=== PATIENT | female | born 1985 | race Hispanic/Latino ===

== ENCOUNTER 2020-08-07 22:00 | Emergency (ER) | payer OTHER | END 2020-08-07 23:51 | disposition home or self-care (01) | LOC: ER 22:15 | DX: R07.81 Pleurodynia (principal); R06.00 Dyspnea, unspecified; D64.9 Anemia, unspecified; Z82.49 Family history of ischemic heart disease and other diseases of the circulatory system; Z83.3 Family history of diabetes mellitus | CPT/HCPCS: 71045; 93005; 99284 ==

== ENCOUNTER 2020-09-17 10:40 | Emergency (ER) | payer OTHER ==
[2020-09-17] MEDS ORDERED: CASIRIVIMAB/IMDEVIMAB 600 MG INJ IV ONE (11:00)
[2020-09-17] MEDS ORDERED: ACETAMINOPHEN 325 MG TAB PO ONE (11:30)
[2020-09-17] MEDS ORDERED: CASIRIVIMAB/IMDEVIMAB 600 MG in SODIUM CHLORIDE 0.9% 100 ML IV ONE (11:30)
== END 2020-09-17 12:23 | disposition home or self-care (01) ==
LOC: ER 10:59
DX: R50.9 Fever, unspecified (principal); R05 Cough; U07.1 COVID-19
CPT/HCPCS: 99283; U0002